=== PATIENT | female | born 1965 | race Caucasian/White ===

== ENCOUNTER 2021-03-19 07:32 | Emergency (ER) | payer OTHER, SELFPAY ==
[2021-03-19 08:43] VITALS: BP 172/90; PULSE 84; RESP 16; TEMP 36.6; O2SAT 100; BMI 25.0
--- NOTE | 2021-03-19 09:27 | ED.BACK ---
HPI - Back Pain/Injury General Chief Complaint: Back Pain/Injury Stated Complaint: sciatica pain Time Seen by Provider: 03/19/21 08:40 Source: patient Mode of arrival: ambulatory Limitations: no limitations History of Present Illness HPI Narrative: 55-year-old female who presents emergency department for evaluation right lower back pain with pain radiating down her right leg. The patient states the pain started approximately 9 days prior to evaluation. She does not recall any specific injury. She describes the pain as a constant, numbness and sharpness in her right lower back along the region of the SI joint, the pain radiates down her right leg to her foot. She states that the right leg is numb but not weak. She states that her pain is greater than 10/10. She has been taking ibuprofen and Vicodin with no relief for pain. She has not had any loss of bowel or bladder control. She denied systemic symptoms such as fever, chills, fatigue. She denied chest pain, cough, shortness of breath, nausea, vomiting or diarrhea. The patient states that her symptoms are consistent with sciatica. Patient states that she was diagnosed with sciatica at several years prior and has not had an episode since then. The patient states that despite the pain she has continued working and her job involves a lot of walking. Related Data Previous Rx's Medication Instructions Recorded cyclobenzaprine 10 mg tablet 10 mg PO TID PRN #20 tab 03/19/21 dexamethasone 6 mg tablet 6 mg PO DAILY 7 Days #7 tab 03/19/21 Allergies Allergy/AdvReac Type Severity Reaction Status Date / Time No Known Allergies Allergy Verified 03/19/21 08:47 Review of Systems Review of Systems: Yes all other systems are reviewed and are negative [facility] Past Medical History [facility] Narrative: Past medical history: Hypertension, right shoulder bursitis, right sciatica, arthritis of the back and knees. Past surgical history: Right knee /tib-fib injury requiring ORIF. Social history: The patient smokes 1/2 pack of cigarettes per day times 30 years. She drinks alcohol on the weekends, 2-3 drinks per weekend day. She denies drug use. Medical History Arthritis Bursitis Hypertension Sciatic leg pain Social History Social History Advance Directives: No Advance Directives Information Provided: No Physical Exam Vital Signs: Vital Signs: Last Vital Signs Temp 97.9 F 03/19/21 08:43 Pulse 84 03/19/21 08:43 Resp 16 03/19/21 08:43 BP 172/90 H 03/19/21 08:43 Pulse Ox 100 03/19/21 08:43 Body Mass Index 25.0 Const: General: cooperative and no acute distress Orientation/consciousness: oriented to person and oriented to place Limitations: no limitations HENMT: Head: Yes normal to inspection, Yes normocephalic and Yes atraumatic Ears: external ears normal General nose exam: Normal external nose present Face and sinus: Yes normal facial exam Mouth: Normal oral and palatal mucosa present Throat: Yes posterior oropharynx normal Eyes: General: appearance normal, both eyes and all related structures Pupils: Equal, round and reactive pupils present Neck: Neck: Yes normal visual inspection, Yes no lymphadenopathy, Yes trachea midline and Yes supple Chest: Chest palpation & inspection: normal inspection of the chest and normal palpation of entire chest wall Resp: Effort & Inspection: normal respiratory effort and able to speak in complete sentences Auscultation: clear to auscultation bilaterally Cardio: Rate: regular rate Rhythm: regular rhythm Heart sounds: S1 normal heart sound present, S2 normal heart sound present and no murmurs GI: Inspection: Yes normal to inspection Palpation (GI): Soft to palpation, nontender and no guarding Auscultation: normal bowel sounds Back/Spine/Pelvis: Other: Right SI joint tenderness, positive straight leg on the right only not on the left, tenderness with palpation of the paraspinal muscles in the low right lumbar sacral area, no vertebral tenderness Skin: General skin exam: no rashes or lesions noted Neuro: General: oriented to person and oriented to place Cranial nerves: Yes CN's II-XII intact bilaterally and Yes Equal, round and reactive pupils present Cognition (Neuro): normal cognition Motor exam (neuro): 5/5 motor strength present throughout Extrem: General: Yes normal to inspection Psych: Appearance: grossly normal Speech and movement: Normal speech and movement present Affect: normal affect Attitude: cooperative Thought process: Normal thought process present Thought content: Normal thought content present Course Course Course Narrative: 55-year-old female who presents emergency department for evaluation of 9 days of right lower back pain with pain and numbness of the right lower extremity extending to the foot. Patient states she has had similar pain in the past secondary to sciatica with her last episode being several years prior. Examination did reveal pain with palpation of the patient's right SI joint and right paraspinal muscles. Patient had a positive straight leg raise on the right but a negative on the left. Patient's strength was normal in her lower extremities and she has had no loss of bowel or bladder control. Patient's presentation is consistent with inflammation of the SI joint and sciatica. I did discuss this with the patient she was advised to stop taking ibuprofen. She was prescribed dexamethasone 4 mg once a day for 1 week, Flexeril 10 mg 3 times a day as needed for pain and lidocaine patches every 12 hours to right lower back. She was advised to continue to take her Vicodin as prescribed by her provider for her lower back pain. She was given printed and verbal instructions and discharged home Discharge Plan Discharge Clinical Impression: Sacro-iliac pain Strain of lumbar region Qualifiers: Encounter type: initial encounter Qualified Code(s): S39.012A - Strain of muscle, fascia and tendon of lower back, initial encounter Sciatica Qualifiers: Laterality: right Qualified Code(s): M54.31 - Sciatica, right side Patient Disposition: Home, Self-Care Instructions: Sciatica (ED), Sacroiliitis (ED) Additional Instructions: Sacroiliitis/sciatic Instructions: Take dexamethasone 6 mg once a day for 1 week. This is a strong anti-inflammatory pain medication. While you taking dexamethasone do not take any other anti-inflammatory medications such as ibuprofen, Motrin, Advil, Aleve, naproxen. Continue taking her Vicodin as prescribed by your doctor. Take Flexeril (cyclobenzaprine) 10 mg pills, 1 pill every 8 hours as needed for pain or muscle spasm. This is a prescription medication. This medication will make you sleepy, therefore do not drive or work while taking this medication. Apply ice for 15 minutes to the area that hurts on your back, then apply a heating a pad on low for 15 minutes. Do this 4-6 times a day to help reduce the pain in your back. Continue with normal activities as tolerated since staying in bed and not moving around will make your pain worse. Apply the lidocaine patches to the painful area on the right side of your back, leave this on for 12 hours and then remove it. You can repeat the patch once a day for 12 hours. If the prescription lidocaine patches not covered by your insurance, then by the [id number] lidocaine patches. Please return to the Emergency Department or see your doctor immediately if your symptoms get worse or if you develop any new symptoms that are concerning you. Follow up with your doctor in 2 day. Please read the other printed discharge instructions on back pain. Prescriptions: New cyclobenzaprine 10 mg tablet 10 mg PO TID PRN (Reason: muscle pain or spasm) Qty: 20 RF: 0 dexamethasone 6 mg tablet 6 mg PO DAILY 7 Days Qty: 7 RF: 0
== END 2021-03-19 10:22 | disposition home or self-care (01) ==
PROVIDERS: Emergency Provider Emergency Medicine Emergency Medical Services; PCP Internal Medicine
DX: M54.41 Lumbago with sciatica, right side (principal); M53.3 Sacrococcygeal disorders, not elsewhere classified; Z79.899 Other long term (current) drug therapy
CPT/HCPCS: 99283

== ENCOUNTER 2021-04-21 09:43 | Emergency (ER) | payer OTHER, SELFPAY ==
[2021-04-21 10:23] VITALS: BP 143/92; PULSE 100; RESP 17; TEMP 36.6; O2SAT 98; BMI 25.0
--- NOTE | 2021-04-21 10:35 | ED_ITS ---
HPI - Extremity Injury (Lower) General Chief Complaint: Extremity Injury, Lower Stated Complaint: NERVE PAIN Time Seen by Provider: 04/21/21 10:34 Source: patient Mode of arrival: ambulatory History of Present Illness HPI Narrative: 55-year-old female with a past medical history of arthritis, bursitis, hypertension, sciatic back pain presenting to the ED complaining of acute on chronic right-sided low back/buttock pain radiating down right lower extremity x6 weeks. Denies known injury/trauma or fall. Admits to similar symptoms in the past. Denies numbness, tingling, weakness, urinary incontinence/retention, fever, chills Related Data Previous Rx's Medication Instructions Recorded cyclobenzaprine 10 mg tablet 10 mg PO TID PRN #20 tab 03/19/21 dexamethasone 6 mg tablet 6 mg PO DAILY 7 Days #7 tab 03/19/21 acetaminophen 500 mg tablet 500 mg PO Q6H PRN #20 tab 04/21/21 (Tylenol Extra Strength) cyclobenzaprine 5 mg tablet 5 mg PO Q8H PRN 5 Days #14 tab 04/21/21 lidocaine 5 % topical patch 1 patch TOPICAL DAILY PRN #30 ea 04/21/21 (Lidoderm) MDD remove after 12 hours naproxen 500 mg tablet 500 mg PO BID PRN 10 Days #20 tab 04/21/21 Allergies Allergy/AdvReac Type Severity Reaction Status Date / Time No Known Allergies Allergy Verified 03/19/21 08:47 Review of Systems Review of Systems: Constitutional: No Fever, No Chills ENT/Mouth: No Ear Pain, No Nasal Congestion, No sore throat Cardiovascular: No Chest Pain, No SOB Respiratory: No Cough, No Sputum, No Wheezing Gastrointestinal: No Nausea, No Vomiting, No Abdominal pain Genitourinary:No Dysuria, No Urinary Frequency, No Hematuria, No Urinary Incontinence/retention, No Flank Pain Musculoskeletal: + joint pain, No Myalgias, No Joint Swelling Skin: No Skin Lesions, No rash Neuro: No Weakness, No Numbness, No Paresthesias Yes all other systems are reviewed and are negative Neurologic: Denies Sensory deficit (Neuro) [facility] Past Medical History Attestation statement: The following information was validated with the patient. Medical History Arthritis Bursitis Hypertension Sciatic leg pain Physical Exam Vital Signs: Vital Signs: Last Vital Signs Temp 98 F 04/21/21 10:23 Pulse 100 04/21/21 10:23 Resp 17 04/21/21 10:23 BP 143/92 H 04/21/21 10:23 Pulse Ox 98 04/21/21 10:23 BMI result Body Mass Index 25.0 Const: General: cooperative, healthy appearing and no acute distress Orientation/consciousness: patient oriented x3 Limitations: no limitations HENMT: Head: Yes normal to inspection Ears: hearing grossly normal bilaterally General nose exam: Normal external nose present Face and sinus: Yes normal facial exam Eyes: General: appearance normal, both eyes and all related structures EOM: EOMs intact bilaterally Neck: Neck: Yes normal visual inspection and Yes no meningeal signs Resp: Effort & Inspection: normal respiratory effort and no respiratory distress Cardio: Rate: regular rate Back/Spine/Pelvis: Other: No midline thoracic/lumbar spinous tenderness, deformity, or step-off. + right-sided buttock tenderness to palpation Skin: Rashes: no rashes Wounds: no wounds Neuro: Other: Ambulating with steady gait. No saddle anesthesia. Strength intact throughout. SILT General: patient oriented x3 and no meningeal signs Gait exam (Neuro): Normal gait present Motor exam (neuro): 5/5 motor strength present throughout Sensory Exam: No Sensory deficit (Neuro) Extrem: General: Yes normal to inspection MDM - Extremity Injury (Lower) MDM Narrative Medical decision making narrative: 55-year-old female with a past medical history of arthritis, bursitis, hypertension, sciatic back pain presenting to the ED complaining of acute on chronic right-sided low back/buttock pain radiating down right lower extremity x6 weeks. On exam vital signs stable, heart rate 100 likely from pain, fidgety during exam, no midline spinous t enderness, no red flag symptoms, strength intact throughout, ambulating with steady gait, no saddle anesthesia. Likely sciatic back pain/muscle spasm pain. Low concern for cauda equina, cord compression. Per [facility] review patient filled 28 days supply, 112 pills of 10mg Vicodin on 04/10 Medical Records Attestation: I reviewed the patient's medical records. Lab Data Attestation: I reviewed the patient's lab results. Discharge Plan Discharge Clinical Impression: Sciatic pain Qualifiers: Laterality: right Qualified Code(s): M54.31 - Sciatica, right side Patient Disposition: Home, Self-Care Instructions: Sciatica (ED) Additional Instructions: Your pain is likely musculoskeletal Flexeril is a muscle relaxer, take at night as it makes you drowsy, do not drive, drink alcohol, or operate machinery while taking it Naproxen as an anti-inflammatory / pain medication, take with food Lidoderm patches are numbing patches, apply to painful area In addition take Tylenol at home If symptoms persist or worsen, pain becomes unbearable, you developed urinary retention or incontinence, or weakness return to the ED Prescriptions: New acetaminophen [Tylenol Extra Strength] 500 mg tablet 500 mg PO Q6H PRN (Reason: pain or fever) Qty: 20 RF: 0 lidocaine [Lidoderm] 5 % adhesive patch,medicated 1 patch topical DAILY MDD remove after 12 hours PRN (Reason: pain) Qty: 30 RF: 0 cyclobenzaprine 5 mg tablet 5 mg PO Q8H PRN (Reason: pain (scale score 7-10)) 5 Days Qty: 14 RF: 0 naproxen 500 mg tablet 500 mg PO BID PRN (Reason: pain) 10 Days Qty: 20 RF: 0 No Action cyclobenzaprine 10 mg tablet 10 mg PO TID PRN (Reason: muscle pain or spasm) Qty: 20 RF: 0 dexamethasone 6 mg tablet 6 mg PO DAILY 7 Days Qty: 7 RF: 0 Referrals: Elio Morrissey MD [Primary Care Provider] - 2 days
[2021-04-21] MEDS: Ketorolac Tromethamine 30 MG/ML VIAL IM (10:42)
== END 2021-04-21 10:57 | disposition home or self-care (01) ==
PROVIDERS: Emergency Provider Emergency Medicine; PCP Internal Medicine
DX: M54.41 Lumbago with sciatica, right side (principal); I10 Essential (primary) hypertension; F17.200 Nicotine dependence, unspecified, uncomplicated
CPT/HCPCS: 96372; 99283; 99284; J1885

== ENCOUNTER → 2021-05-09 09:00 | Outpatient (BNVA) | payer OTHER, SELFPAY | PROVIDERS: PCP Internal Medicine; Visit Provider Nurse Practitioner Family ==

== ENCOUNTER 2021-05-22 09:53 | Outpatient (RCR) | payer OTHER, SELFPAY ==
[2021-05-22 09:59] VITALS: BP 144/74; PULSE 99
--- NOTE | 2021-05-22 11:52 | MHC.PT.EP ---
[facility] [place] Office [place] Office [place] Office [address] [phone] F: [phone] F: [phone] F: [phone] F: [phone] Physical Therapy Plan of Care Date of Evaluation: Date of Surgery: Diagnosis: sacrococcygeal disorder primary OA L knee radiculopathy lumbar region Assessment: 55 y/o F referred to PT with SI disorder, lumbar radiculopathy, and L knee OA. Pt arrives in hospital w/c stating she cannot walk today due to excessive pain this morning. She reports pain and difficulty with everything depending when her back flares up such as standing, walking, sitting, sleeping, chores, and work duties. She has an injection scheduled for 05/28/21. Examination shows decreased lumbar AROM, decreased hip AROM, slightly decreased strength B LE, TTP R low back/glut, impaired postural awareness and impaired gait pattern. She presents with R genu varus and L genu valgus, L lumbar rotation, and L LE longer than R. S/s consistent with acute on chronic LBP due to lumbar derangement. Recommend PT 2x/week for 5 weeks to address impairments, implement HEP, and optimize functional mobility. SHe would like to trial 1x/week. Frequency and Duration: The patient will be seen 1x/week for 5 weeks Short Term Goals: 3 weeks 1. I with HEP 2. Pt will be able to sit with neutral posture and lumbar roll without cues 5/5x Mcfp Goals: 5 weeks 1. I with HEP and self management of sx 2. Report decreased in pain by 50% overall (currently 10/10) 3. Pt will be able to walk > 25 min with pain < 3/10 Treatment Plan: Modalities to reduce pain, spasms and effusion. Manual therapy to restore motion and function. Therapeutic exercise to improve strength and flexibility. Neuromuscular re-education for posture and balance. Therapeutic activities to return to functional activities of daily living. Electronically signed by: Anne Marie Alva PT Please sign and return to therapist. Thank you for your referral.
--- NOTE | 2021-06-19 10:16 | MHC.PT.DC ---
[facility] [place] Office [place] Office [place] Office [address] [facility] [phone] F: [phone] F: [phone] F: [phone] F: [phone] Physical Therapy Discharge Report Diagnosis: sacrococcygeal disorder primary OA L knee radiculopathy lumbar region Date of Surgery: Date of Evaluation: 05/22/21 Date of Discharge: 06/19/21 Treatments to Date: 1 Cancellations to Date: 0 No Shows to Date: 0 Discharge Status: Patient Elected to Stop Discharge Summary: Pt called to report she will be having surgery and to cancel all appointments. She has not attended PT since the initial evaluation. Electronically signed by: Anne Marie Alva PT Please sign and return to therapist. Thank you for your referral.
== END 2021-06-19 10:16 | disposition home or self-care (01) ==
LOC: HO.PT 09:53
PROVIDERS: PCP Internal Medicine; Visit Provider Nurse Practitioner Family
DX: M53.3 Sacrococcygeal disorders, not elsewhere classified (principal); M17.0 Bilateral primary osteoarthritis of knee; M54.16 Radiculopathy, lumbar region
CPT/HCPCS: 97014; 97110; 97162

== ENCOUNTER 2021-05-28 07:36 | Outpatient (REF) | payer OTHER, SELFPAY ==
--- NOTE | ~2021-05-28 | FL_ITS ---
EXAMINATION: XR FLUOROSCOPY WITH IMAGES CLINICAL INFORMATION: Radiculopathy. COMPARISON: None. TECHNIQUE: Fluoroscopy performed by Dr. Alfred Garcia. Fluoroscopy time: 0.4 minutes DAP: 4 Gycm2 Images: 4 FINDINGS: Images demonstrate needle placement and contrast injection adjacent to the lateral right L4 and L5 vertebral bodies and right sacroiliac joint. FL/FL guidance in treatment room IMPRESSION: Fluoroscopy guidance for pain management procedure.
== END 2021-05-28 07:37 | disposition home or self-care (01) ==
LOC: HO.RADIR 07:36
PROVIDERS: Visit Provider Anesthesiology
DX: M54.16 Radiculopathy, lumbar region (principal); M51.36 Other intervertebral disc degeneration, lumbar region; M48.061 Spinal stenosis, lumbar region without neurogenic claudication; M53.3 Sacrococcygeal disorders, not elsewhere classified; M17.0 Bilateral primary osteoarthritis of knee; F17.200 Nicotine dependence, unspecified, uncomplicated
CPT/HCPCS: 64483; 64484; J3300; Q9967

== ENCOUNTER → 2021-06-25 09:34 | Outpatient (BNVA) | payer OTHER, SELFPAY | PROVIDERS: PCP Internal Medicine; Visit Provider Nurse Practitioner Family ==

== ENCOUNTER 2021-12-28 16:52 | Emergency (ER) | payer OTHER, SELFPAY ==
--- NOTE | ~2021-12-28 | CT_ITS ---
EXAMINATION: CT CHEST, ABDOMEN AND PELVIS WITHOUT CONTRAST CLINICAL INFORMATION: Back/flank pain with sciatica. Status post lumbar fusion. COMPARISON: None TECHNIQUE: Multidetector volumetric imaging was performed from the lung bases through the pubic symphysis. Sagittal and coronal reformatted images were obtained on the technologist's workstation. Dedicated small [id number] axial, coronal, and sagittal reconstructed images of the lumbar spine were generated. This CT examination was performed using dose optimization techniques as appropriate, variously including the following: *Automated exposure control *Adjustment of mA and/or kV according to patient size (this includes techniques or standardized protocols for targeted exams where dose is matched to indication/reason for exam; i.e. extremities or head) *Use of iterative reconstruction technique DLP: 374 mGy-cm FINDINGS: CHEST: Lung bases: Couple small pulmonary nodules in the lung bases largest pleural-based in the left lower lobe the mean diameter approximately 4.5 mm, the other in the anterior right lower lobe adjacent to the oblique fissure. Lung bases otherwise clear. Liver, Gallbladder, Biliary Tree: The liver is normal in size, shape, and attenuation. No focal hepatic lesion or biliary ductal dilatation is present. The gallbladder is unremarkable with no evidence of radiopaque gallstones, gallbladder wall thickening, or pericholecystic inflammatory changes. Pancreas: Mildly dilated pancreatic duct measuring approximately 4 mm. No ductal stone. No pancreatic lesion or peripancreatic inflammatory change Spleen: Normal size. No splenic lesion Adrenal Glands: Unremarkable. Kidneys and Ureters: The kidneys are normal in size, shape, and attenuation. No hydronephrosis or hydroureter or calculi seen. No perinephric stranding. Bladder: Unremarkable. Gastrointestinal Tract: The small and large bowel are unremarkable. The appendix is unremarkable. No ascites or free air. Abdominal Wall: Small fat-containing umbilical hernia. Lymphovascular Structures: Lymph nodes: No lymphadenopathy. There are soft tissue attenuation masses in the right and left inguinal regions measuring 3.3 x 2.7 cm on the right and 3.2 x 2.4 cm on the left with attenuation values of 47 Hounsfield units. Uncertain as to whether not these represent fluid collections or venous varices versus soft tissue mass. Surgical clips in the right groin. Vascular: Relatively extensive atherosclerotic vascular calcifications. Normal caliber abdominal aorta. Pelvic Viscera: Gynecologic structures grossly unremarkable limited assessment. No free pelvic fluid. OSSEOUS STRUCTURES: Healed left pubic rami fracture deformities. This degenerative changes most advanced in the lower thoracic spine. Status post L4-L5 posterior spinal fusion with intervertebral spacer. CT lumbar spine: Minimal grade 1 anterolisthesis at L4-L5. No additional subluxation. Status post paired vishnu and pedicle screw fixation at L4-L5 intervertebral spacer. Fixation construct is intact. No lucency surrounding the fixation screws. No endplate erosive/destructive change. Intervertebral disc heights in the lumbar spine are maintained. Mild endplate changes at L2-L3 and L3-L4. No pars defects. Status post partial facetectomies at L4-L5. Correlate with surgical history. Left-sided prominent facet arthrosis at L5-S1. Limited assessment of spinal canal contents via noncontrast CT. L1-L2: No appreciable central canal or neural foraminal stenosis. L2-L3: Mild diffuse disc bulge. Minimal caudal neural foraminal narrowing. Minimal central canal narrowing. L3-L4: Mild diffuse disc bulge. Suggestion of a left foraminal disc extrusion possible impinging upon the exiting left L3 nerve root. Correlate clinically with left L3 radicular symptoms. Minimal right neural foraminal narrowing. L4-L5: Status post posterior spinal fusion. Nondiagnostic assessment of spinal canal and neural foraminal due to streak artifact. L5-S1: Minimal right paracentral posterior disc protrusion. Lateral facet arthrosis. No neural foraminal narrowing. CT/CT abdomen pelvis wo con IMPRESSION: 1. No acute intra-abdominal process identified. No evidence of nephrolithiasis or hydronephrosis. 2. Status post discectomy and posterior spinal fusion at L4-L5 partial lateral facetectomies. Correlate with surgical history. 3. Limited assessment of spinal canal contents to the noncontrast CT technique. There is suggestion of a left foraminal disc extrusion at L3-L4 possibly impinging upon the exiting left L3 nerve root. Correlate clinically with left L3 radicular symptoms. 4. No acute fracture. 5. Rounded soft tissue attenuation masses in the right and left groin, measuring 3.2 cm in the right and 3.2 cm and the left. Correlate with palpable abnormalities on exam and history. The differential considerations would include fluid collections, large venous varices, or other nonspecific masses. Targeted ultrasound may be helpful. 6. A couple small sub-6 mm bibasilar pulmonary nodules. If high risk for malignancy, suggest optional low-dose chest CT follow-up in 12 months time per Arin society guidelines. Otherwise, no follow-up required.
[2021-12-28 17:20] VITALS: BP 101/68; PULSE 115; RESP 21; TEMP 37.1; O2SAT 100; BMI 24.5
--- NOTE | 2021-12-28 18:38 | ED.BACK ---
HPI - Back Pain/Injury General Chief Complaint: Back Pain/Injury Stated Complaint: Back pain Source: patient Mode of arrival: ambulatory Limitations: no limitations History of Present Illness HPI Narrative: 56-year-old female presents with severe back pain and left-sided sciatica. Has a history L4-L5 fusion in June of 2021, states that she bent over on while she was at work, and felt an immediate increase in pain with left-sided sciatica. She does have pain management, and did take her Vicodin, baclofen and gabapentin as directed. She is unable to manage her pain, cannot eat, and is having a difficult time ambulating. She does not report symptoms indicating cauda equina, denies fevers, abdominal distention, dysuria, hematuria, and with weakness. MD elicited complaint: back pain Pertinent past history: prior back pain Onset (ago): day(s) (4) Timing: constant and progressively worsening Severity: severe Pain scale (0-10): 10 Similar Symptoms Previously: Yes Quality: aching, spasming and throbbing Location: lumbar spine and left lower back Radiation: left upper leg and left leg below the knee Exacerbating factors: movement, sitting upright and walking Relieving factors: none Context: bending Associated symptoms: denies other symptoms Treatments prior to arrival: cold therapy, NSAIDS and prescription analgesics Work related injury: No Related Data Home Medications Medication Instructions Recorded Confirmed celecoxib 200 mg capsule mg PO BID 05/09/21 escitalopram oxalate 20 mg tablet 20 mg PO DAILY 05/09/21 gabapentin 600 mg tablet 600 mg PO QID 05/09/21 hydrochlorothiazide 25 mg tablet 25 mg PO DAILY 05/09/21 hydrocodone 10 mg-acetaminophen 1 tab PO QID PRN 05/09/21 325 mg tablet Previous Rx's Medication Instructions Recorded acetaminophen 500 mg tablet 500 mg PO Q6H PRN pain or fever 04/21/21 (Tylenol Extra Strength) #20 tabs lidocaine 5 % topical patch 1 patch topical DAILY PRN pain #30 04/21/21 (Lidoderm) ea naproxen 500 mg tablet 500 mg PO BID PRN pain 10 days #20 04/21/21 tabs baclofen 20 mg tablet 20 mg PO BID PRN for pain 30 days 09/02/21 #60 tabs diazepam 5 mg tablet (Valium) 5 mg PO TID PRN muscle spasm #14 12/28/21 tabs Allergies Allergy/AdvReac Type Severity Reaction Status Date / Time Iodinated Contrast Media Allergy Mild Hives Verified 12/28/21 17:26 Review of Systems Review of Systems: Constitutional: No Fever, No Chills ENT/Mouth: No Ear Pain, No Hoarseness, No sore throat Eyes: No Eye Pain, No Swelling, No Redness, No Foreign Body Cardiovascular: No Chest Pain, No SOB Respiratory: No Cough, No Dyspnea Gastrointestinal: No Nausea, No Vomiting, No Diarrhea, No abdominal Pain Genitourinary: No Dysuria, No Hematuria Musculoskeletal: positive lower back pain and left-sided lower extremity pain, No Myalgias, No Joint Swelling Skin: No Skin lacerations, No rash Neuro: No Weakness, No Numbness, No Paresthesias, No Loss of Consciousness, No Dizziness, No Headache Psych: No Anxiety/Panic, No Depression Heme/Lymph: no easy bruising, no Lymphadenopathy Endocrine: No Polyuria, No Polydipsia Yes all other systems are reviewed and are negative [facility], [facility] Past Medical History Attestation statement: The following information was validated with the patient. Source: old records reviewed Medical History Arthritis Bursitis Hypertension Sciatic leg pain Social History Social History Alcohol intake: current Patient Tobacco Use Status: Current everyday Tobacco user Tobacco use type: Cigarette Cigarette Packs Per Day: 0.5 Second Hand Smoke Exposure: No Advance Directives: No Advance Directives Information Provided: No Current occupational status: employed Physical Exam Vital Signs: Vital Signs: Last Vital Signs Temp 98.7 F 12/28/21 17:20 Pulse 108 H 12/28/21 19:35 Resp 20 12/28/21 19:35 BP 140/88 H 12/28/21 19:35 Pulse Ox 98 12/28/21 19:35 O2 Del Method 12/28/21 19:35 BMI result Body Mass Index 24.5 Appearance: Alert. Oriented X3. Moderate distress. Eyes: Pupils equal, round and reactive to light. ENT: Pharynx normal. Neck: Normal inspection. Neck supple. CVS: Normal heart rate and rhythm. Pulses normal. Respiratory: No respiratory distress. Breath sounds normal. Abdomen: Soft and nontender. Skin: Skin warm and dry. Normal skin color. Normal skin turgor. Extremities: No lower extremity edema. Moves all extremities against resistance. Sensation intact. Brisk capillary refill in equal pulses. Neuro: No motor deficit. No sensory deficit. Cranial nerves 2-12 intact. Course Course Course Narrative: 56-year-old female presents with 10/10 back pain, does have history of chronic back pain with lumbar fusion of L4-L5 in June of 2021. She states that her back pain is normally managed with Vicodin, baclofen, and gabapentin. She is unable to manage her pain after a bending injury. Plan of care is for CT scan of lumbar spine, labs and urinalysis. CT of lumbar spine shows L4-L5 foraminal disc extrusion with possible impingement exiting on left L3 nerve root. Rounded soft tissue attenuation masses in the right and left groin measuring 3.2 cm in the right and 3.2 cm in left, could possibly be fluid collection, large venous varices, or nonspecific masses. I will have patient follow-up with her primary care physician for this follow-up. Patient will follow up with spinal surgeon for the L4-L5 foraminal disc extrusion with impingement the left L3 nerve root. Incidental findings of bibasilar pulmonary nodules, will follow up with primary care for repeat CT scan in approximately 1 year. I will prescribe 3 days of Valium to help alleviate back spasms and pain. Patient verbalized understanding of and agrees to plan of care discharge home. Verbalized understanding of signs and symptoms indicating need for emergent intervention. 01:45 after reviewing the records, I noticed that patient's sodium is 128. I did try to reach this patient via Cell and home phone numbers however neither phone numbers work. Will attempt to reach primary care for repeat chemistries. MDM - Back Pain/Injury Differential Diagnosis Differential diagnosis: Likely lumbar radiculopathy, sciatica, strain of lumbar region, pyelonephritis and discitis Medical Records Attestation: I reviewed the patient's medical records. Lab Data Attestation: I reviewed the patient's lab results. Result diagrams: 12/28/21 19:04 12/28/21 21:43 Labs: Lab Results 12/28/21 12/28/21 Range/Units 19:04 21:43 WBC 8.3 (4.8-10.8) X10*3/uL RBC 4.80 (4.20-5.50) X10*6/uL Hgb 14.7 (12.0-16.0) g/dl Hct 41.7 (37.0-47.0) % MCV 86.9 (80.0-98.0) fL MCH 30.6 (27.0-33.0) pg MCHC 35.3 H (31.0-35.0) g/dl RDW 12.2 (11.0-16.0) % Plt Count 428 H (160-400) X10*3/uL MPV 8.2 L (9.4-12.3) fL Immature Gran % (Auto) 0.2 (0.0-0.4) % Neut % (Auto) 82.7 H (45-73) % Lymph % (Auto) 7.4 L (20-40) % [place] % (Auto) 8.1 (2-11) % Eos % (Auto) 1.1 (0-4) % Baso % (Auto) 0.5 (0-2) % Lymph # (Auto) 0.6 L (1.2-4.9) X10*3/uL [place] # (Auto) 0.7 (0.1-1.2) X10*3/uL Eos # (Auto) 0.1 (0.0-0.4) X10*3/uL Baso # (Auto) 0.0 (0.0-0.2) X10*3/uL Abs Immat Gran (auto) 0.02 (0.00-0.03) X10*3/uL Absolute Neuts (auto) 6.8 (2.0-8.3) x10*3/uL Absolute Nucleated RBC 0.000 (0.0-0.012) X10*3/uL Nucleated RBC % (auto) 0.0 (0.0-0.2) /100WBC Sodium 128 L (135-145) mmol/L Potassium 4.2 (3.3-5.1) mmol/L Chloride 92 L (96-108) mmol/L Carbon Dioxide 23 (22-29) mmol/L Anion Gap 17 (12-20) BUN 14 (9-16) mg/dL Creatinine 0.60 (0.5-1.4) mg/dL Estim Creat Clear Calc 87.4 Estimated GFR > 60 Random Glucose 82 (60-115) mg/dL Calcium 9.5 (8.4-10.2) mg/dL Imaging Data CT scan - abdomen: Attestation: I personally reviewed and interpreted this imaging study as follows: Radiologist's impression: FINDINGS: CHEST: Lung bases: Couple small pulmonary nodules in the lung bases largest pleural-based in the left lower lobe the mean diameter approximately 4.5 mm, the other in the anterior right lower lobe adjacent to the oblique fissure. Lung bases otherwise clear. Liver, Gallbladder, Biliary Tree: The liver is normal in size, shape, and attenuation. No focal hepatic lesion or biliary ductal dilatation is present. The gallbladder is unremarkable with no evidence of radiopaque gallstones, gallbladder wall thickening, or pericholecystic inflammatory changes. Pancreas: Mildly dilated pancreatic duct measuring approximately 4 mm. No ductal stone. No pancreatic lesion or peripancreatic inflammatory change Spleen: Normal size. No splenic lesion Adrenal Glands: Unremarkable. Kidneys and Ureters: The kidneys are normal in size, shape, and attenuation. No hydronephrosis or hydroureter or calculi seen. No perinephric stranding. Bladder: Unremarkable. Gastrointestinal Tract: The small and large bowel are unremarkable. The appendix is unremarkable. No ascites or free air. Abdominal Wall: Small fat-containing umbilical hernia. Lymphovascular Structures: Lymph nodes: No lymphadenopathy. There are soft tissue attenuation masses in the right and left inguinal regions measuring 3.3 x 2.7 cm on the right and 3.2 x 2.4 cm on the left with attenuation values of 47 Hounsfield units. Uncertain as to whether not these represent fluid collections or venous varices versus soft tissue mass. Surgical clips in the right groin. Vascular: Relatively extensive atherosclerotic vascular calcifications. Normal caliber abdominal aorta. Pelvic Viscera: Gynecologic structures grossly unremarkable limited assessment. No free pelvic fluid. OSSEOUS STRUCTURES: Healed left pubic rami fracture deformities. This degenerative changes most advanced in the lower thoracic spine. Status post L4-L5 posterior spinal fusion with intervertebral spacer. CT lumbar spine: Minimal grade 1 anterolisthesis at L4-L5. No additional subluxation. Status post paired vishnu and pedicle screw fixation at L4-L5 intervertebral spacer. Fixation construct is intact. No lucency surrounding the fixation screws. No endplate erosive/destructive change. Intervertebral disc heights in the lumbar spine are maintained. Mild endplate changes at L2-L3 and L3-L4. No pars defects. Status post partial facetectomies at L4-L5. Correlate with surgical history. Left-sided prominent facet arthrosis at L5-S1. Limited assessment of spinal canal contents via noncontrast CT. L1-L2: No appreciable central canal or neural foraminal stenosis. L2-L3: Mild diffuse disc bulge. Minimal caudal neural foraminal narrowing. Minimal central canal narrowing. L3-L4: Mild diffuse disc bulge. Suggestion of a left foraminal disc extrusion possible impinging upon the exiting left L3 nerve root. Correlate clinically with left L3 radicular symptoms. Minimal right neural foraminal narrowing. L4-L5: Status post posterior spinal fusion. Nondiagnostic assessment of spinal canal and neural foraminal due to streak artifact. L5-S1: Minimal right paracentral posterior disc protrusion. Lateral facet arthrosis. No neural foraminal narrowing. CT/CT abdomen pelvis wo con IMPRESSION: ? 1. No acute intra-abdominal process identified. No evidence of nephrolithiasis or hydronephrosis. 2. Status post discectomy and posterior spinal fusion at L4-L5 partial lateral facetectomies. Correlate with surgical history. 3. Limited assessment of spinal canal contents to the noncontrast CT technique. There is suggestion of a left foraminal disc extrusion at L3-L4 possibly impinging upon the exiting left L3 nerve root. Correlate clinically with left L3 radicular symptoms. 4. No acute fracture. 5. Rounded soft tissue attenuation masses in the right and left groin, measuring 3.2 cm in the right and 3.2 cm and the left. Correlate with palpable abnormalities on exam and history. The differential considerations would include fluid collections, large venous varices, or other nonspecific masses. Targeted ultrasound may be helpful. 6. A couple small sub-6 mm bibasilar pulmonary nodules. If high risk for malignancy, suggest optional low-dose chest CT follow-up in 12 months time per Arin society guidelines. Otherwise, no follow-up required. Discharge Plan Discharge Clinical Impression: Spinal stenosis at L4-L5 level, Lumbar foraminal stenosis, Lumbar nerve root impingement Patient Disposition: Home, Self-Care Instructions: Lumbar Radiculopathy (ED) Additional Instructions: You were evaluated for lower back pain withleft-sided radiculopathy. Your CT scan shows left foraminal disc extrusion at L3-L4 with possible impingement on the left L3 nerve root. Please follow-up with your spinal surgeon. Incidental findings of her CT scan shows a right and left groin abnormality that needs to be followed up by her primary care physician. You need a repeat chest CT in approximately 12 months for some small nonspecific nodules in your lungs. I prescribed Valium for muscle spasms. This medication is a benzo diazepam and can delay reaction time, increased risk for falls, and cause drowsiness. Do not drive or operate machinery while taking this medication. Follow-up with primary care physician. Return to the emergency department for any new, concerning, worsening symptoms. Prescriptions: New diazepam [Valium] 5 mg tablet 5 mg PO TID PRN (Reason: muscle spasm) Qty: 14 0RF No Action baclofen 20 mg tablet 20 mg PO BID PRN (Reason: for pain) 30 Days Qty: 60 3RF acetaminophen [Tylenol Extra Strength] 500 mg tablet 500 mg PO Q6H PRN (Reason: pain or fever) Qty: 20 0RF lidocaine [Lidoderm] 5 % adhesive patch,medicated 1 patch topical DAILY MDD remove after 12 hours PRN (Reason: pain) Qty: 30 0RF Rx Instructions: leave on most painful area for up to 12 hrs naproxen 500 mg tablet 500 mg PO BID PRN (Reason: pain) 10 Days Qty: 20 0RF hydrocodone-acetaminophen 10-325 mg tablet 1 tab PO QID PRN celecoxib 200 mg capsule PO BID gabapentin 600 mg tablet 600 mg PO QID escitalopram oxalate 20 mg tablet 20 mg PO DAILY hydrochlorothiazide 25 mg tablet 25 mg PO DAILY Referrals: Elio Morrissey III, MD [Primary Care Provider] - 2 days (Foraminal disc extrusion at L3-L4 impinging on left L3 nerve root, sodium of 128) Interventions: ED Discharge Assessment Last Done: 12/28/21 23:03 Discharge Date/Time: 12/28/21 23:04
[2021-12-28 19:12] LABS: MANUAL DIFF FLAG NO
[2021-12-28 19:14] LABS: Basophils Percent Auto 0.5 % (0-2); Eosinophils Absolute Auto 0.1 X10*3/uL (0.0-0.4); Eosinophils Percent Auto 1.1 % (0-4); Hematocrit 41.7 % (37.0-47.0); Hemoglobin 14.7 g/dl (12.0-16.0); Imm Gran Abs Auto 0.02 X10*3/uL (0.00-0.03); Imm Gran Pct Auto 0.2 % (0.0-0.4); Lymphocytes Absolute Auto 0.6 X10*3/uL (1.2-4.9); Lymphocytes Percent Auto 7.4 % (20-40); Mean Corpuscular HGB Conc 35.3 g/dl (31.0-35.0); Mean Corpuscular Hemoglobin 30.6 pg (27.0-33.0); Mean Corpuscular Volume 86.9 fL (80.0-98.0); Mean Platelet Volume 8.2 fL (9.4-12.3); Monocytes Absolute Auto 0.7 X10*3/uL (0.1-1.2); Monocytes Percent Auto 8.1 % (2-11); Neutrophils Absolute Auto 6.8 x10*3/uL (2.0-8.3); Neutrophils Percent Auto 82.7 % (45-73); Platelet Count 428 X10*3/uL (160-400); Red Cell Distribution Width 12.2 % (11.0-16.0); White Blood Count 8.3 X10*3/uL (4.8-10.8)
[2021-12-28 19:35] VITALS: BP 140/88; PULSE 108; RESP 20; O2SAT 98
[2021-12-28] MEDS: diazePAM 10 MG/2 ML CARTRIDGE 2.5 MG IVPUSH (19:37)
[2021-12-28] MEDS: ondansetron HCL 4 MG/2 ML VIAL IVPUSH (19:38)
[2021-12-28] MEDS: Morphine Sulfate 4 MG/ML CARTRIDGE IVPUSH (19:38)
[2021-12-28] MEDS: oxyCODONE HCl Immed Release 5 MG TABLET PO (21:40)
[2021-12-28 22:16] LABS: Anion Gap 17 (12-20); Blood Urea Nitrogen 14 mg/dL (9-16); Calcium 9.5 mg/dL (8.4-10.2); Carbon Dioxide 23 mmol/L (22-29); Chloride 92 mmol/L (96-108); Creatinine Clr Calc Pharmacy 87.4; Estimated Glomerular Filt Rate > 60; Glucose Random 82 mg/dL (60-115); Potassium 4.2 mmol/L (3.3-5.1); Sodium 128 mmol/L (135-145)
== END 2021-12-28 23:04 | disposition home or self-care (01) ==
PROVIDERS: Nurse Practitioner Family; Emergency Provider Emergency Medicine; PCP Internal Medicine
DX: M48.061 Spinal stenosis, lumbar region without neurogenic claudication (principal); M54.16 Radiculopathy, lumbar region; M53.3 Sacrococcygeal disorders, not elsewhere classified; M51.36 Other intervertebral disc degeneration, lumbar region; R19.00 Intra-abdominal and pelvic swelling, mass and lump, unspecified site; R91.1 Solitary pulmonary nodule; I10 Essential (primary) hypertension; F17.200 Nicotine dependence, unspecified, uncomplicated
CPT/HCPCS: 72131; 74176; 80048; 85025; 96374; 96375; 99283; 99284; J2270; J2405; J3360